=== PATIENT | female | born 1985 | race Caucasian/White ===

== ENCOUNTER → 2017-06-30 | Outpatient (CLI) | payer OTHER ==
[~2017-06-30] MED LIST: ACET500 PO; ALBU90OI INH; ARIP10 PO; Ativan0.5 MG PO; BUPR150ER PO; CARB50; CEPH500 PO; CIPR250 PO; CIPR500 PO; CLIN150 PO; CLIN300 PO; CLINDAMYCI75 MG/5 M1 PO; Cephalexin250 MG/5 M PO; Cleocin HCl150 MG PO; Cleocin HCl300 MG PO; DIPH50 PO; DOXY100 PO; EPIN.3I IM; FAMO20 PO; FERR160 PO; HYDACE5 PO; IBUP200 PO; IBUP800 PO; LEVFLO500 PO; LIDO2L TOP; LORA.5 PO; METPRE4DP PO; MULVITMINE PO; MUPI1NAS; MUPI2TO TOP; Norco 5-325 Ta1 EACH PO; ONDA4 PO; OXYACE5T PO; OXYACE7.5T PO; PHENA200 PO; PRED20 PO; PREN-16 PO; PROM25 PO; Pepcid40 MG PO; Prednisone20 MG PO; RANI150; RANI150 PO; RXCLIN PO; RXHYDACE PO; RXOXYACE PO; RXPHEN200 PO; RXTRAM50 PO; SERT50 PO; SILSUL1TC TOP; SULTRIDS PO; VIT B; Ventolin Soln3 ML INH; Zofran Odt8 MG SL; [UNRECOGNIZED DRUG - REMARK]
== END | disposition home or self-care (01) ==
LOC: LAB 14:15
DX: J02.9 Acute pharyngitis, unspecified (principal)
CPT/HCPCS: 87070; 87147

== ENCOUNTER 2017-08-16 09:46 | Emergency (ER) | payer OTHER ==
[~2017-08-16] VITALS: Ht 160 cm; Wt 77.1 kg
[~2017-08-16 09:46] MED LIST changes: -Cleocin HCl150 MG PO
[2017-08-16] MEDS ORDERED: Cleocin HCl150 MG PO (10:30)
== END 2017-08-16 10:44 | disposition home or self-care (01) ==
LOC: ER 09:46
DX: K04.7 Periapical abscess without sinus (principal); Z88.0 Allergy status to penicillin; Z88.2 Allergy status to sulfonamides; Z88.8 Allergy status to other drugs, medicaments and biological substances; Z88.1 Allergy status to other antibiotic agents; F32.9 Major depressive disorder, single episode, unspecified; Z87.891 Personal history of nicotine dependence
CPT/HCPCS: 99282

== ENCOUNTER 2017-08-19 11:13 | Emergency (ER) | payer OTHER ==
[~2017-08-19] VITALS: Ht 157.5 cm; Wt 77.1 kg
[~2017-08-19 11:13] MED LIST changes: +Cleocin HCl150 MG PO
[2017-08-19] MEDS ORDERED: Norco 5-325 Ta1 EACH PO (14:28)
[2017-08-19] MEDS ORDERED: IBUP800 PO (14:28)
== END 2017-08-19 14:36 | disposition home or self-care (01) ==
LOC: ER 11:13
DX: R07.81 Pleurodynia (principal); Z88.0 Allergy status to penicillin; Z88.8 Allergy status to other drugs, medicaments and biological substances; Z88.2 Allergy status to sulfonamides; Z88.1 Allergy status to other antibiotic agents; Z79.2 Long term (current) use of antibiotics; F32.9 Major depressive disorder, single episode, unspecified; F17.210 Nicotine dependence, cigarettes, uncomplicated
CPT/HCPCS: 71101; 96372; 99283; J1885

== ENCOUNTER 2019-07-26 08:06 | Emergency (ER) | payer SELFPAY ==
[~2019-07-26] VITALS: Ht 160 cm; Wt 68.0 kg
[2019-07-26] MEDS ORDERED: IBUP600 PO (09:27)
== END 2019-07-26 09:32 | disposition home or self-care (01) ==
LOC: ER 08:06
DX: S30.0XXA Contusion of lower back and pelvis, initial encounter (principal); Z88.0 Allergy status to penicillin; Z88.2 Allergy status to sulfonamides; Z88.1 Allergy status to other antibiotic agents; Z87.891 Personal history of nicotine dependence; W17.89XA Other fall from one level to another, initial encounter
CPT/HCPCS: 72220; 99283-25; A9270-GY

== ENCOUNTER 2021-07-11 10:49 | Emergency (ER) | payer SELFPAY ==
[~2021-07-11] VITALS: Ht 160 cm; Wt 72.6 kg
[~2021-07-11 10:49] MED LIST changes: +IBUP600 PO
[2021-07-11 11:26] LABS: BASOPHILS ABSOLUTE AUTO 0.05 K/mm3 (0.00-0.23); BASOPHILS PERCENT AUTO 1 % (0-2); EOSINOPHILS ABSOLUTE AUTO 0.16 K/mm3 (0.00-0.68); EOSINOPHILS PERCENT AUTO 3 % (0-6); Hematocrit 41.2 % (33.0-51.0); Hemoglobin 13.8 g/dL (11.5-16.0); IMMATURE GRAN ABSOLUTE AUTO 0.01 K/mm3 (0.00-0.10); IMMATURE GRAN PERCENT AUTO 0 % (0-1); LYMPHOCYTES ABSOLUTE AUTO 1.88 K/mm3 (0.84-5.20); LYMPHOCYTES PERCENT AUTO 30 % (21-46); MONOCYTES ABSOLUTE AUTO 0.55 K/mm3 (0.16-1.47); MONOCYTES PERCENT AUTO 9 % (4-13); Mean Corpuscular HGB 29.7 pg (26.0-34.0); Mean Corpuscular HGB Conc 33.5 g/dL (31.5-36.5); Mean Corpuscular Volume 89 fL (80-100); Mean Platelet Volume 10.9 fL (9.1-12.4); NEUTROPHILS ABSOLUTE AUTO 3.53 K/mm3 (1.96-9.15); NEUTROPHILS PERCENT AUTO 57 % (41-73); Platelet Count 208 K/mm3 (150-400); RDW Coefficient Variation 11.8 % (11.7-14.2); RDW Standard Deviation 37.8 fL (35.1-46.3); Red Blood Cell Count 4.64 M/mm3 (3.80-5.20); White Blood Cell Count 6.18 K/mm3 (4.00-11.30)
[2021-07-11 12:07] LABS: Alanine Aminotransfer (ALT/SGP 38 U/L (12-78); Albumin, Blood 4.1 g/dL (3.4-5.0); Albumin/Globulin Ratio 1.3 (0.8-1.8); Alk Phos 59 U/L (50-136); Anion Gap 7 mmol/L (6-16); Aspartate Aminotrans (AST/SGOT 18 U/L (12-37); Bilirubin, Total 0.9 mg/dL (0.1-1.0); Blood Urea Nitrogen 16 mg/dL (8-24); Bun/Creatinine Ratio 17.5 (12.0-20.0); CO2, Blood 27 mmol/L (21-32); Calcium, Blood 9.3 mg/dL (8.5-10.1); Chloride, Blood 108 mmol/L (98-108); Creatinine, Blood 0.91 mg/dL (0.40-1.00); Globulin, Blood 3.2 g/dL (2.2-4.0); Glomerular Filtration Rate >60 (60-); Glucose, Blood 94 mg/dL (70-99); Potassium, Blood 4.4 mmol/L (3.5-5.5); Sodium, Blood 142 mmol/L (136-145); Total Protein, Blood 7.3 g/dL (6.4-8.2); Troponin I <0.015 ng/mL (0.000-0.040)
== END 2021-07-11 13:26 | disposition home or self-care (01) ==
LOC: ER 10:49
PROVIDERS: Emergency Medicine
DX: R07.89 Other chest pain (principal); F41.1 Generalized anxiety disorder; Z88.0 Allergy status to penicillin; Z88.2 Allergy status to sulfonamides; Z88.1 Allergy status to other antibiotic agents; Z88.8 Allergy status to other drugs, medicaments and biological substances; Z87.891 Personal history of nicotine dependence
CPT/HCPCS: 36415; 71046; 80053; 83690; 84484; 85025; 93005; 93010